=== PATIENT | female | born 1970 | race African-American/Black ===

== ENCOUNTER 2016-10-17 15:16 | Inpatient (IN) | payer SELFPAY ==
[~2016-10-17] VITALS: Ht 157.5 cm; Wt 45.8 kg
[2016-10-17] VITALS (7 sets, daily range): BP systolic 109–114; BP diastolic 68–82
[~2016-10-17 15:16] MED LIST: DOCU-138 PO; DOCUSATE; ECHI167T PO; FERR325T6 PO; IBUP100T54 PO; INSU3INS6 SUBCUT; INSULIN; METF500T4 PO; METFORMIN; NOVOLOG INSULIN SUBCUT/PO
[2016-10-17] MEDS ORDERED: SODIUM CHLORIDE 0.9% 1,000 ML IV ONE (16:06)
[2016-10-17 16:45] LABS: BASOPHILS % 0.4 % (0.0-2.0); DIFFERENTIAL COMMENT 0; HEMATOCRIT. 46.1 % (36.0-48.0); HEMOGLOBIN. 14.5 g/dL (12.0-16.0); LYMPHOCYTES % 12.3 % (20.0-50.0); MEAN CORPUSCULAR HEMOGLOBIN 34.5 pg (28.0-32.0); MEAN CORPUSCULAR HGB CONC 31.5 g/dL (31.0-37.0); MEAN CORPUSCULAR VOLUME 109.6 fL (81.0-99.0); MEAN PLATELET VOLUME 8.7 fl (7.4-10.4); MONOCYTES % 6.8 % (2.0-8.0); NEUTROPHILS % 80.5 % (40.0-76.0); PLATELET 367 x1000/uL (130-400); RED BLOOD CELL COUNT 4.21 mill/uL (4.2-5.4); RED CELL DISTRIBUTION WIDTH 14.8 % (11.6-14.6); WHITE BLOOD COUNT 13.5 x1000/uL (4.5-11.0)
[2016-10-17] MEDS ORDERED: ONDANSETRON HCL 4MG/2ML VIAL IV ONE (16:45)
[2016-10-17 16:47] LABS: CHLORIDE 94 mEq/L (98-107)
[2016-10-17 16:49] LABS: PROTHROMBIN TIME 10.4 sec
[2016-10-17 16:50] LABS: CLARITY URINE CLEAR (CLEAR); COLOR URINE YELLOW (YELLOW); GLUCOSE URINE 3+ (NEGATIVE); KETONES URINE 4+ (NEGATIVE); LEUKOCYTE ESTERASE URINE NEGATIVE (NEGATIVE); NITRITE URINE NEGATIVE (NEGATIVE); OCCULT BLOOD URINE TRACE (NEGATIVE); PROTEIN URINE 2+ (NEGATIVE); SPECIFIC GRAVITY URINE 1.023 (1.005-1.030); UROBILINOGEN URINE 0.2 E.U./dL (0.2-1.0)
[2016-10-17 16:53] LABS: CALCIUM 9.3 mg/dL (8.5-10.1); INDEX HEMOLYSI 2 (1-3); INDEX ICTERIC 1 (1-4); INDEX LIPEMIC 1 (1-3); UREA NITROGEN BLOOD 16 mg/dL (7-21)
[2016-10-17 16:56] LABS: ALANINE AMINOTRANSFERASE 51 IU/L (13-61); ANION GAP 37; eGFR > 60 mL/min (>60)
[2016-10-17 16:58] LABS: CARBON DIOXIDE 5 mEq/L (21-32)
[2016-10-17 17:12] LABS: WBC URINE 0-2 /hpf (0-2)
[2016-10-17 17:14] LABS: RBC URINE 0-2 /hpf (0-2)
[2016-10-17 17:15] LABS: BACTERIA URINE 1+; SQUAMOUS EPITHELIAL CELL URINE 2+ /lpf (RARE/1+)
[2016-10-17] MEDS ORDERED: INSULIN REGULAR (DRIP) 100 UNITS in SODIUM CHLORIDE 0.9% 100 ML IV ONE (17:30)
[2016-10-17 17:32] LABS: BETA HYDROXYBUTYRATE 14.2 mMol/L (0.0-0.3)
[2016-10-17] MEDS ORDERED: INSULIN REGULAR (DRIP) 100 UNITS in SODIUM CHLORIDE 0.9% 100 ML IV NR (18:00)
[2016-10-17] MEDS ORDERED: CLONIDINE 0.1MG TABLET PO PRN (20:45)
[2016-10-17] MEDS ORDERED: SODIUM CHLORIDE 0.45% 250 ML IV NR (20:45)
[2016-10-17] MEDS ORDERED: ZOLPIDEM TARTRATE 5MG TABLET PO PRN (20:45)
[2016-10-17] MEDS ORDERED: INSULIN REGULAR (DRIP) 100 UNITS in SODIUM CHLORIDE 0.9% 99 ML IV PRN (21:15)
[2016-10-17] MEDS ORDERED: DEXTROSE 50% WATER 50ML SYRINGE IV PRN ×4 (21:15→22:00)
[2016-10-17] MEDS: DEXT 5%/0.45% NACL 500 ML IV NR (21:55)
[2016-10-17] MEDS: BLOOD SUGAR DIAGNOSTIC STRIP TEST SCH ×3 (21:57→23:15)
[2016-10-17] MEDS ORDERED: BLOOD SUGAR DIAGNOSTIC STRIP TEST SCH (22:00)
[2016-10-17] MEDS ORDERED: INSULIN REGULAR (DRIP) 100 UNITS in SODIUM CHLORIDE 0.9% 100 ML IV SCH (23:00)
[2016-10-18] VITALS (33 sets, daily range): BP systolic 114–155; BP diastolic 67–113
[2016-10-18] MEDS: DEXT 5%/0.45% NACL 500 ML IV NR (00:45)
[2016-10-18] MEDS: BLOOD SUGAR DIAGNOSTIC STRIP TEST SCH ×11 (01:15→22:14)
[2016-10-18] MEDS: ACETAMINOPHEN 325MG TABLET PO PRN (03:40)
[2016-10-18 05:37] LABS: HEMATOCRIT. 37.9 % (36.0-48.0); HEMOGLOBIN. 12.6 g/dL (12.0-16.0); MEAN CORPUSCULAR HEMOGLOBIN 33.8 pg (28.0-32.0); MEAN CORPUSCULAR HGB CONC 33.2 g/dL (31.0-37.0); MEAN CORPUSCULAR VOLUME 101.8 fL (81.0-99.0); MEAN PLATELET VOLUME 8.3 fl (7.4-10.4); PLATELET 249 x1000/uL (130-400); RED BLOOD CELL COUNT 3.73 mill/uL (4.2-5.4); RED CELL DISTRIBUTION WIDTH 13.5 % (11.6-14.6); WHITE BLOOD COUNT 11.7 x1000/uL (4.5-11.0)
[2016-10-18 05:39] LABS: DIFFERENTIAL COMMENT 1
[2016-10-18 06:09] LABS: ALANINE AMINOTRANSFERASE 31 IU/L (13-61); ALBUMIN 3.9 g/dL (3.4-5.0); ANION GAP 20; CALCIUM 8.3 mg/dL (8.5-10.1); CARBON DIOXIDE 13 mEq/L (21-32); CHLORIDE 111 mEq/L (98-107); INDEX HEMOLYSI 1 (1-3); INDEX ICTERIC 1 (1-4); INDEX LIPEMIC 1 (1-3); UREA NITROGEN BLOOD 22 mg/dL (7-21); eGFR > 60 mL/min (>60)
[2016-10-18] MEDS ORDERED: DEXTROSE 50% WATER 50ML SYRINGE IV PRN (08:30)
[2016-10-18] MEDS: PANTOPRAZOLE 40MG DR TABLET PO SCH ×2 (08:43→17:31)
[2016-10-18] MEDS: SODIUM CHLORIDE 0.45% 1,000 ML IV SCH ×2 (08:44→17:31)
[2016-10-18] MEDS: ENOXAPARIN 40MG/0.4ML SYR SUBCUT SCH (08:44)
[2016-10-18 08:57] LABS: PLATELET ESTIMATE NORMAL
[2016-10-18] MEDS ORDERED: INSULIN DETEMIR UD 100 UNITS/ML SYR SUBCUT SCH (10:00)
[2016-10-18 13:25] LABS: CLARITY URINE CLOUDY (CLEAR); COLOR URINE YELLOW (YELLOW); GLUCOSE URINE 2+ (NEGATIVE); KETONES URINE 3+ (NEGATIVE); LEUKOCYTE ESTERASE URINE NEGATIVE (NEGATIVE); NITRITE URINE NEGATIVE (NEGATIVE); OCCULT BLOOD URINE NEGATIVE (NEGATIVE); PROTEIN URINE 2+ (NEGATIVE); SPECIFIC GRAVITY URINE 1.018 (1.005-1.030)
[2016-10-18] MEDS: INSULIN LISPRO 100 UNITS/ML SUBCUT SCH ×3 (13:39→22:14)
[2016-10-18 13:57] LABS: FINE GRANULAR CASTS URINE 0-5 /lpf; SQUAMOUS EPITHELIAL CELL URINE 3+ /lpf (RARE/1+)
[2016-10-18 13:58] LABS: BACTERIA URINE 4+; RBC URINE 0-2 /hpf (0-2); WBC URINE 15-25 /hpf (0-2)
[2016-10-18 14:00] LABS: TRIPLE PHOSPHATE CRYSTAL URINE 1+ /lpf; YEAST URINE 1+
[2016-10-18] MEDS ORDERED: ONDANSETRON HCL 4MG/2ML VIAL IV PRN (19:00)
[2016-10-18] MEDS: ONDANSETRON INJ 8 MG in DEXTROSE 5% WATER 50 ML IV PRN (19:54)
[2016-10-18] MEDS ORDERED: BLOOD SUGAR DIAGNOSTIC STRIP TEST SCH (21:00)
[2016-10-19] VITALS (27 sets, daily range): BP systolic 97–190; BP diastolic 38–95
[2016-10-19] MEDS: SODIUM CHLORIDE 0.45% 1,000 ML IV SCH (05:00)
[2016-10-19 05:23] LABS: BASOPHILS % 0.7 % (0.0-2.0); HEMOGLOBIN. 11.4 g/dL (12.0-16.0); LYMPHOCYTES % 8.4 % (20.0-50.0); MEAN CORPUSCULAR HEMOGLOBIN 34.1 pg (28.0-32.0); MEAN CORPUSCULAR HGB CONC 34.4 g/dL (31.0-37.0); MEAN CORPUSCULAR VOLUME 99.1 fL (81.0-99.0); MEAN PLATELET VOLUME 7.8 fl (7.4-10.4); MONOCYTES % 10.8 % (2.0-8.0); NEUTROPHILS % 80.1 % (40.0-76.0); PLATELET 228 x1000/uL (130-400); RED BLOOD CELL COUNT 3.33 mill/uL (4.2-5.4); RED CELL DISTRIBUTION WIDTH 13.6 % (11.6-14.6); WHITE BLOOD COUNT 8.3 x1000/uL (4.5-11.0)
[2016-10-19 05:37] LABS: ANION GAP 15; CALCIUM 8.3 mg/dL (8.5-10.1); CARBON DIOXIDE 19 mEq/L (21-32); CHLORIDE 107 mEq/L (98-107); INDEX HEMOLYSI 1 (1-3); INDEX ICTERIC 1 (1-4); INDEX LIPEMIC 1 (1-3); UREA NITROGEN BLOOD 19 mg/dL (7-21); eGFR > 60 mL/min (>60)
[2016-10-19] MEDS: BLOOD SUGAR DIAGNOSTIC STRIP TEST SCH ×4 (07:50→21:00)
[2016-10-19] MEDS: INSULIN LISPRO 100 UNITS/ML SUBCUT SCH ×4 (08:20→23:50)
[2016-10-19] MEDS: PANTOPRAZOLE 40MG DR TABLET PO SCH ×2 (08:42→19:03)
[2016-10-19] MEDS: ONDANSETRON INJ 8 MG in DEXTROSE 5% WATER 50 ML IV PRN (08:58)
[2016-10-19] MEDS: ENOXAPARIN 40MG/0.4ML SYR SUBCUT SCH (08:58)
[2016-10-19] MEDS: HYDROMORPHONE HCL/PF 2MG/ML CPJ IM PRN ×2 (09:01→20:21)
[2016-10-19] MEDS ORDERED: POTASSIUM ACETATE IV SCH (09:14)
[2016-10-19] MEDS ORDERED: SODIUM CHLORIDE 0.45% IV SCH (09:14)
[2016-10-19] MEDS ORDERED: POTASSIUM CHLORIDE 20MEQ TABLET SR PO NR (10:00)
[2016-10-19] MEDS ORDERED: INSULIN DETEMIR UD 100 UNITS/ML SYR SUBCUT SCH ×2 (10:00→22:00)
[2016-10-19] MEDS: POTASSIUM CHLORIDE INJ 10 MEQ in SODIUM CHLORIDE 0.45% 1,000 ML IV SCH ×2 (13:09→19:04)
[2016-10-19 13:34] LABS: MAGNESIUM 1.8 mg/dL (1.8-2.4); PHOSPHORUS 2.1 mg/dL (2.5-4.9)
[2016-10-20] VITALS: BP 101/59
[2016-10-20] MEDS: POTASSIUM CHLORIDE INJ 10 MEQ in SODIUM CHLORIDE 0.45% 1,000 ML IV SCH ×2 (03:03→13:41)
[2016-10-20 04:00] VITALS: BP 97/60
[2016-10-20 05:59] LABS: ANION GAP 13; CALCIUM 8.5 mg/dL (8.5-10.1); CARBON DIOXIDE 21 mEq/L (21-32); CHLORIDE 107 mEq/L (98-107); INDEX HEMOLYSI 1 (1-3); INDEX ICTERIC 1 (1-4); INDEX LIPEMIC 1 (1-3); eGFR > 60 mL/min (>60)
[2016-10-20 06:01] LABS: UREA NITROGEN BLOOD 10 mg/dL (7-21)
[2016-10-20 06:08] LABS: BASOPHILS % 0.3 % (0.0-2.0); DIFFERENTIAL COMMENT 0; EOSINOPHILS % 0.2 % (0.0-5.0); HEMATOCRIT. 31.7 % (36.0-48.0); HEMOGLOBIN. 10.7 g/dL (12.0-16.0); LYMPHOCYTES % 21.3 % (20.0-50.0); MEAN CORPUSCULAR HEMOGLOBIN 33.8 pg (28.0-32.0); MEAN CORPUSCULAR HGB CONC 33.7 g/dL (31.0-37.0); MEAN CORPUSCULAR VOLUME 100.3 fL (81.0-99.0); MEAN PLATELET VOLUME 8.1 fl (7.4-10.4); MONOCYTES % 11.6 % (2.0-8.0); NEUTROPHILS % 66.6 % (40.0-76.0); PLATELET 218 x1000/uL (130-400); RED BLOOD CELL COUNT 3.16 mill/uL (4.2-5.4); RED CELL DISTRIBUTION WIDTH 13.5 % (11.6-14.6); WHITE BLOOD COUNT 4.1 x1000/uL (4.5-11.0)
[2016-10-20] MEDS: BLOOD SUGAR DIAGNOSTIC STRIP TEST SCH ×3 (06:48→17:21)
[2016-10-20] MEDS: INSULIN LISPRO 100 UNITS/ML SUBCUT SCH ×2 (06:49→12:15)
[2016-10-20] MEDS: PANTOPRAZOLE 40MG DR TABLET PO SCH (06:53)
[2016-10-20 08:00] VITALS: BP 121/82
[2016-10-20] MEDS: ACETAMINOPHEN 325MG TABLET PO PRN (09:56)
[2016-10-20] MEDS: ENOXAPARIN 40MG/0.4ML SYR SUBCUT SCH (09:56)
[2016-10-20 12:00] VITALS: BP 122/78
[2016-10-20 15:35] VITALS: BP 117/76
== END 2016-10-20 18:25 | disposition home or self-care (01) | DRG 420 ==
LOC: ER 15:17 → CVICU 18:27 → 5WST 10-19 18:35
PROVIDERS: ADMIT Internal Medicine; ATTEND Internal Medicine
DX: E10.10 Type 1 diabetes mellitus with ketoacidosis without coma (principal); E87.5 Hyperkalemia; E87.1 Hypo-osmolality and hyponatremia; E78.00 Pure hypercholesterolemia, unspecified; D72.829 Elevated white blood cell count, unspecified; E86.0 Dehydration; E87.6 Hypokalemia; Z83.3 Family history of diabetes mellitus; Z91.19 Patient's noncompliance with other medical treatment and regimen; Z82.49 Family history of ischemic heart disease and other diseases of the circulatory system; Z79.4 Long term (current) use of insulin
CPT/HCPCS: 36415; 71010; 80048; 80053; 81001; 82010; 82962; 83690; 83735; 84100; 84132; 85025; 85610; 87086; 93005; 96374; 99291; J1170; J1650; J1815; J2405; J3480; J7030; J7050; J7060

== ENCOUNTER 2017-01-12 19:40 | Emergency (ER) | payer OTHER ==
[~2017-01-12] VITALS: Ht 154.9 cm; Wt 41.0 kg
[~2017-01-12 19:40] MED LIST changes: -DOCUSATE; -INSULIN; -METFORMIN; -NOVOLOG INSULIN SUBCUT/PO
[2017-01-12 20:41] LABS: BASOPHILS % 1.2 % (0.0-2.0); EOSINOPHILS % 0.6 % (0.0-5.0); HEMATOCRIT. 30.3 % (36.0-48.0); HEMOGLOBIN. 10.1 g/dL (12.0-16.0); LYMPHOCYTES % 37.6 % (20.0-50.0); MEAN CORPUSCULAR HEMOGLOBIN 28.2 pg (28.0-32.0); MEAN CORPUSCULAR VOLUME 84.6 fL (81.0-99.0); MEAN PLATELET VOLUME 7.6 fl (7.4-10.4); MONOCYTES % 9.7 % (2.0-8.0); NEUTROPHILS % 50.9 % (40.0-76.0); PLATELET 246 x1000/uL (130-400); RED BLOOD CELL COUNT 3.59 mill/uL (4.2-5.4); RED CELL DISTRIBUTION WIDTH 18.1 % (11.6-14.6)
[2017-01-12 20:47] LABS: INR 1.1; PARTIAL THROMBOPLASTIN TIME 21.9 sec (24.0-34.0); PROTHROMBIN TIME 11.7 sec
[2017-01-12 20:55] LABS: CARBON DIOXIDE 30 mEq/L (21-32); CHLORIDE 102 mEq/L (98-107); TROPONIN I < 0.02 ng/mL (0.00-0.04)
[2017-01-12] MEDS ORDERED: POTASSIUM CHLORIDE 20MEQ TABLET SR PO ONE (21:30)
[2017-01-12] MEDS ORDERED: KCL 20MEQ/100ML PREMIX 100 ML IV ONE (21:30)
[2017-01-12] MEDS ORDERED: ONDANSETRON HCL 4MG/2ML VIAL IV ONE (21:30)
[2017-01-12] MEDS ORDERED: MORPHINE SULFATE 4 MG/ML CPJ (NOT FOR IM USE) IV ONE (21:30)
[2017-01-12] MEDS ORDERED: POTASSIUM CHLORIDE 20MEQ/PACKET PO ONE (22:15)
[2017-01-13 00:07] VITALS: BP 138/80
== END 2017-01-13 00:09 | disposition home or self-care (01) ==
LOC: ER 19:40
DX: K56.0 Paralytic ileus (principal); E87.6 Hypokalemia; E11.9 Type 2 diabetes mellitus without complications; Z79.4 Long term (current) use of insulin; Z98.890 Other specified postprocedural states
CPT/HCPCS: 36415; 71010; 76705; 80053; 83690; 84484; 85025; 85610; 85730; 93005; 96365; 96375; 99285; J2270; J2405; J3480; J7030; Z7610

== ENCOUNTER 2017-02-26 15:15 | Inpatient (IN) | payer OTHER ==
[2017-02-26] VITALS (8 sets, daily range): BP systolic 120–150; BP diastolic 72–85
[~2017-02-26] VITALS: Ht 162.6 cm; Wt 39.5 kg
[~2017-02-26 15:15] MED LIST changes: +HUMALOG SQ
[2017-02-26 16:45] LABS: HEMATOCRIT. 33.1 % (36.0-48.0); HEMOGLOBIN. 10.3 g/dL (12.0-16.0); MEAN CORPUSCULAR HEMOGLOBIN 25.3 pg (28.0-32.0); MEAN CORPUSCULAR VOLUME 81.7 fL (81.0-99.0); MEAN PLATELET VOLUME 7.7 fl (7.4-10.4); PLATELET 437 x1000/uL (130-400); RED BLOOD CELL COUNT 4.05 mill/uL (4.2-5.4); RED CELL DISTRIBUTION WIDTH 18.2 % (11.6-14.6)
[2017-02-26 16:47] LABS: CHLORIDE 100 mEq/L (98-107)
[2017-02-26 16:51] LABS: PROTHROMBIN TIME 10.7 sec (9.4-11.6)
[2017-02-26 16:55] LABS: CARBON DIOXIDE 12 mEq/L (21-32)
[2017-02-26 17:40] LABS: CLARITY URINE CLEAR (CLEAR); COLOR URINE YELLOW (YELLOW); GLUCOSE URINE 3+ (NEGATIVE); KETONES URINE 4+ (NEGATIVE); LEUKOCYTE ESTERASE URINE NEGATIVE (NEGATIVE); NITRITE URINE NEGATIVE (NEGATIVE); OCCULT BLOOD URINE NEGATIVE (NEGATIVE); PROTEIN URINE 2+ (NEGATIVE); SPECIFIC GRAVITY URINE 1.027 (1.005-1.030); UROBILINOGEN URINE 0.2 E.U./dL (0.2-1.0)
[2017-02-26 17:44] LABS: PLATELET ESTIMATE SLIGHTLY INCREASED
[2017-02-26 17:51] LABS: *AMPHETAMINES SCREEN URINE NEGATIVE (NEGATIVE); *BARBITURATES SCREEN URINE NEGATIVE (NEGATIVE); *BENZODIAZEPINES SCREEN URINE NEGATIVE (NEGATIVE); *COCAINE SCREEN URINE NEGATIVE (NEGATIVE); CANNABINOID URINE SCREEN NEGATIVE (NEGATIVE); METHADONE URINE SCREEN NEGATIVE (NEGATIVE); OPIATES URINE SCREEN NEGATIVE (NEGATIVE); PHENCYCLIDINE URINE SCREEN NEGATIVE (NEGATIVE)
[2017-02-26] MEDS ORDERED: INSULIN REGULAR (DRIP) 100 UNITS in SODIUM CHLORIDE 0.9% 100 ML IV ONE ×2 (20:15→20:42)
[2017-02-26] MEDS ORDERED: SODIUM CHLORIDE 0.9% 1,000 ML IV ONE (20:15)
[2017-02-26 20:41] LABS: BG BASE EXCESS -19.6 mmol/L (-2.0-2.0); BG CARBOXYHEMOGLOBIN 0.2 % (0.5-1.5); BG DEOXYHEMOGLOBIN 2.3 % (0.0-5.0); BG FRACTION INSPIRED OXYGEN 21; BG HCO3 ACT 5.2 mmol/L (22.0-26.0); BG METHEMOGLOBIN 1.2 % (0.0-1.5); BG OXYGEN SATURATION 97.7 % (92.0-98.5); BG OXYHEMOGLOBIN 96.3 % (94.0-97.0); BG PCO2 12.1 mmHg (35.0-45.0); BG PH 7.252 (7.350-7.450); BG SAMPLE SITE RIGHT BRACHIAL; BG TOTAL HEMOGLOBIN 10.3 g/dL (12.0-18.0); BG VENT MODE ROOM AIR
[2017-02-26] MEDS ORDERED: ONDANSETRON HCL 4MG/2ML VIAL IV ONE (21:45)
[2017-02-26] MEDS ORDERED: INSULIN REGULAR (DRIP) 100 UNITS in SODIUM CHLORIDE 0.9% 100 ML IV SCH (22:41)
[2017-02-26] MEDS ORDERED: BLOOD SUGAR DIAGNOSTIC STRIP TEST SCH (22:45)
[2017-02-26] MEDS ORDERED: NA PHOS,M-B/NA PHOS,DI-BA ENEMA 118ML PR PRN (22:45)
[2017-02-26] MEDS ORDERED: GUAIFENESIN 200MG/10ML SUGAR FREE UDC PO PRN (22:45)
[2017-02-26] MEDS ORDERED: IPRATROPIUM/ALBUTEROL 0.5-3(2.5)MG/3ML NEB INH PRN (22:45)
[2017-02-26] MEDS ORDERED: DIPHENHYDRAMINE 50MG/ML VIAL IV PRN (22:45)
[2017-02-26] MEDS ORDERED: MAGNESIUM/ALUMINUM HYDROXIDE/SIMETHICONE 30ML UDC PO PRN (22:45)
[2017-02-26] MEDS ORDERED: ZOLPIDEM TARTRATE 5MG TABLET PO PRN (22:45)
[2017-02-26] MEDS ORDERED: INSULIN REGULAR (DRIP) 100 UNITS in SODIUM CHLORIDE 0.9% 99 ML IV PRN (22:45)
[2017-02-26] MEDS ORDERED: ACETAMINOPHEN 325MG TABLET PO PRN (22:45)
[2017-02-26] MEDS ORDERED: NITROGLYCERIN 0.4MG TABLET SL SL PRN (22:45)
[2017-02-26] MEDS ORDERED: POTASSIUM ACETATE 20 MEQ in SODIUM CHLORIDE 0.9% 1,000 ML IV SCH (22:45)
[2017-02-26] MEDS ORDERED: LORAZEPAM 2MG/ML CPJ IV PRN (22:45)
[2017-02-26] MEDS ORDERED: ONDANSETRON HCL 4MG/2ML VIAL IV PRN (22:45)
[2017-02-26] MEDS ORDERED: DOCUSATE SODIUM 100MG CAPSULE PO PRN (22:45)
[2017-02-26] MEDS ORDERED: SODIUM CHLORIDE 0.9% 1,000 ML IV SCH (23:04)
[2017-02-26] MEDS: ENOXAPARIN 40MG/0.4ML SYR SUBCUT SCH (23:39)
[2017-02-27] VITALS (34 sets, daily range): BP systolic 95–168; BP diastolic 60–89
[2017-02-27] MEDS: BLOOD SUGAR DIAGNOSTIC STRIP TEST SCH ×20 (00:46→22:18)
[2017-02-27] MEDS: DEXT 5%/0.9% NACL 1,000 ML IV SCH ×3 (01:40→13:51)
[2017-02-27 06:40] LABS: BASOPHILS % 0.4 % (0.0-2.0); HEMATOCRIT. 26.6 % (36.0-48.0); HEMOGLOBIN. 8.3 g/dL (12.0-16.0); LYMPHOCYTES % 14.1 % (20.0-50.0); MEAN CORPUSCULAR HEMOGLOBIN 25.2 pg (28.0-32.0); MEAN PLATELET VOLUME 7.7 fl (7.4-10.4); MONOCYTES % 13.5 % (2.0-8.0); PLATELET 338 x1000/uL (130-400); RED BLOOD CELL COUNT 3.28 mill/uL (4.2-5.4)
[2017-02-27 06:48] LABS: CARBON DIOXIDE 16 mEq/L (21-32); CHLORIDE 117 mEq/L (98-107)
[2017-02-27 07:09] LABS: PHOSPHORUS 1.4 mg/dL (2.5-4.9)
[2017-02-27] MEDS: FAMOTIDINE 20MG/2ML VIAL IV SCH ×2 (08:07→21:17)
[2017-02-27] MEDS ORDERED: POTASSIUM PHOS,M-BASIC-D-BASIC 20 MMOL in DEXT 5% WATER 243.3333 ML IV SCH (10:00)
[2017-02-27 15:50] LABS: CHLORIDE 118 mEq/L (98-107)
[2017-02-27 15:51] LABS: PHOSPHORUS 1.4 mg/dL (2.5-4.9)
[2017-02-27 15:56] LABS: CARBON DIOXIDE 20 mEq/L (21-32)
[2017-02-27] MEDS ORDERED: DEXTROSE 50% WATER 50ML SYRINGE IV PRN (16:30)
[2017-02-27] MEDS ORDERED: INSULIN DETEMIR UD 100 UNITS/ML SYR SUBCUT NR (17:00)
[2017-02-27] MEDS ORDERED: POTASSIUM PHOS,M-BASIC-D-BASIC 30 MMOL in DEXT 5% WATER 500 ML IV NR (18:00)
[2017-02-27] MEDS: INSULIN LISPRO 100 UNITS/ML SUBCUT SCH ×3 (18:28→22:18)
[2017-02-27] MEDS: CLONIDINE 0.1MG TABLET PO PRN (18:50)
[2017-02-27] MEDS ORDERED: INSULIN DETEMIR UD 100 UNITS/ML SYR SUBCUT SCH (22:00)
[2017-02-27] MEDS: DEXTROSE 50% WATER 50ML SYRINGE IV PRN (22:20)
[2017-02-27] MEDS: ENOXAPARIN 40MG/0.4ML SYR SUBCUT SCH (22:23)
[2017-02-28] VITALS (24 sets, daily range): BP systolic 100–169; BP diastolic 62–110
[2017-02-28] MEDS: DEXTROSE 50% WATER 50ML SYRINGE IV PRN ×5 (00:02→09:07)
[2017-02-28] MEDS: DEXT 10% WATER 1,000 ML IV SCH ×2 (03:50→15:32)
[2017-02-28 06:08] LABS: HEMATOCRIT 24.7 % (36.0-48.0); HEMOGLOBIN 7.9 g/dL (12.0-16.0); MEAN CORPUSCULAR HEMOGLOBIN 25.6 pg (28.0-32.0); MEAN CORPUSCULAR VOLUME 79.8 fL (81.0-99.0); PLATELET 238 x1000/uL (130-400); RED CELL DISTRIBUTION WIDTH 18.7 % (11.6-14.6)
[2017-02-28 06:55] LABS: CARBON DIOXIDE 22 mEq/L (21-32); CHLORIDE 109 mEq/L (98-107); PHOSPHORUS 3.1 mg/dL (2.5-4.9)
[2017-02-28] MEDS: INSULIN LISPRO 100 UNITS/ML SUBCUT SCH ×7 (07:50→21:41)
[2017-02-28] MEDS: ONDANSETRON HCL 4MG/2ML VIAL IV PRN ×3 (08:50→18:47)
[2017-02-28] MEDS: FAMOTIDINE 20MG/2ML VIAL IV SCH ×2 (08:50→19:57)
[2017-02-28] MEDS: BLOOD SUGAR DIAGNOSTIC STRIP TEST SCH ×4 (09:03→21:00)
[2017-02-28] MEDS ORDERED: POTASSIUM CHLORIDE 20MEQ/PACKET PO NR (09:30)
[2017-02-28] MEDS: KETOROLAC 30MG/ML VIAL IV PRN ×3 (09:53→21:31)
[2017-02-28] MEDS ORDERED: KCL 20MEQ/100ML PREMIX 100 ML IV NR (10:30)
[2017-02-28] MEDS ORDERED: MAGNESIUM 2 G PREMIX 50 ML IV NR (11:00)
[2017-02-28] MEDS: ERYTHROMYCIN LACTOBIONATE 500 MG in SODIUM CHLORIDE 0.9% 100 ML IV SCH ×2 (13:43→19:57)
[2017-02-28] MEDS ORDERED: INSULIN DETEMIR UD 100 UNITS/ML SYR SUBCUT SCH (22:00)
[2017-02-28] MEDS: ENOXAPARIN 40MG/0.4ML SYR SUBCUT SCH (22:42)
[2017-03-01] VITALS (17 sets, daily range): BP systolic 91–156; BP diastolic 58–104
[2017-03-01] MEDS: KETOROLAC 30MG/ML VIAL IV PRN (06:18)
[2017-03-01] MEDS: DEXT 10% WATER 1,000 ML IV SCH (06:18)
[2017-03-01] MEDS: BLOOD SUGAR DIAGNOSTIC STRIP TEST SCH ×2 (07:57→12:54)
[2017-03-01] MEDS: INSULIN LISPRO 100 UNITS/ML SUBCUT SCH ×4 (08:04→12:54)
[2017-03-01] MEDS: FAMOTIDINE 20MG/2ML VIAL IV SCH (08:14)
[2017-03-01] MEDS: CLONIDINE 0.1MG TABLET PO PRN (11:16)
[2017-03-01 11:23] LABS: CARBON DIOXIDE 23 mEq/L (21-32); CHLORIDE 101 mEq/L (98-107)
[2017-03-01] MEDS ORDERED: POTASSIUM CHLORIDE 20MEQ/PACKET PO NR (11:45)
[2017-03-01] MEDS ORDERED: KCL 20MEQ/100ML PREMIX 100 ML IV NR (13:30)
[2017-03-01] MEDS ORDERED: INSU100I28 SQ (14:09)
[2017-03-01] MEDS ORDERED: PROT40 PO (14:12)
[2017-03-01] MEDS ORDERED: SUCR1TAB30 PO (14:13)
[2017-03-01] MEDS ORDERED: DEXT 10% WATER 1,000 ML IV SCH (14:30)
== END 2017-03-01 15:30 | disposition home or self-care (01) | DRG 420 ==
LOC: ER 15:45 → CVICU 21:01 → EDBEDREQSVC 21:13 → EDBEDREQ 21:13 → EDBEDREQTM 21:13 → ENRESERV 21:27
PROVIDERS: ADMIT Internal Medicine; ATTEND Internal Medicine
DX: E13.10 Other specified diabetes mellitus with ketoacidosis without coma (principal); N17.0 Acute kidney failure with tubular necrosis; E87.0 Hyperosmolality and hypernatremia; E83.42 Hypomagnesemia; E83.39 Other disorders of phosphorus metabolism; E13.649 Other specified diabetes mellitus with hypoglycemia without coma; E86.0 Dehydration; E87.6 Hypokalemia; I10 Essential (primary) hypertension; Z79.4 Long term (current) use of insulin; Z91.11 Patient's noncompliance with dietary regimen; Z91.14 Patient's other noncompliance with medication regimen; Z79.899 Other long term (current) drug therapy
CPT/HCPCS: 36415; 36600; 71010; 74176; 80048; 80053; 80305; 81001; 81025; 82375; 82805; 82962; 83036; 83690; 83735; 83880; 84100; 85025; 85027; 85610; 85651; 93005; 93970; 99285; C1893; J1364; J1650; J1815; J1885; J2405; J3475; J3480; J3490; J7030; J7042; J7050; J7060

== ENCOUNTER 2017-03-15 07:52 | Emergency (ER) | payer OTHER ==
[~2017-03-15] VITALS: Ht 162.6 cm; Wt 55.0 kg
[~2017-03-15 07:52] MED LIST changes: -DOCU-138 PO; -ECHI167T PO; -FERR325T6 PO; -IBUP100T54 PO; -METF500T4 PO; +PROT40 PO; +SUCR1TAB30 PO
[2017-03-15 08:57] LABS: CARBON DIOXIDE 26 mEq/L (21-32); CHLORIDE 105 mEq/L (98-107)
[2017-03-15 09:02] LABS: HEMATOCRIT. 27.1 % (36.0-48.0); HEMOGLOBIN. 8.5 g/dL (12.0-16.0); MEAN CORPUSCULAR HEMOGLOBIN 24.8 pg (28.0-32.0); MEAN CORPUSCULAR VOLUME 79.3 fL (81.0-99.0); MEAN PLATELET VOLUME 6.9 fl (7.4-10.4); PLATELET 421 x1000/uL (130-400); RED BLOOD CELL COUNT 3.42 mill/uL (4.2-5.4); RED CELL DISTRIBUTION WIDTH 19.2 % (11.6-14.6)
[2017-03-15 09:56] LABS: PLATELET ESTIMATE INCREASED
[2017-03-15 12:24] VITALS: BP 107/68
== END 2017-03-15 12:25 | disposition home or self-care (01) ==
LOC: ER 08:02
DX: E11.65 Type 2 diabetes mellitus with hyperglycemia (principal); Z79.4 Long term (current) use of insulin
CPT/HCPCS: 36415; 80048; 82962; 85025; 99284; Z7610

== ENCOUNTER 2017-03-17 11:03 | Emergency (ER) | payer OTHER ==
[~2017-03-17] VITALS: Ht 154.9 cm; Wt 48.0 kg
[2017-03-17 12:15] LABS: HEMATOCRIT. 33.5 % (36.0-48.0); HEMOGLOBIN. 10.6 g/dL (12.0-16.0); MEAN CORPUSCULAR HEMOGLOBIN 24.8 pg (28.0-32.0); MEAN CORPUSCULAR VOLUME 78.6 fL (81.0-99.0); PLATELET 521 x1000/uL (130-400); RED BLOOD CELL COUNT 4.26 mill/uL (4.2-5.4); RED CELL DISTRIBUTION WIDTH 19.4 % (11.6-14.6)
[2017-03-17 12:18] LABS: CHLORIDE 99 mEq/L (98-107)
[2017-03-17 12:20] LABS: HCG SCREEN NEGATIVE
[2017-03-17 12:24] LABS: CARBON DIOXIDE 30 mEq/L (21-32)
[2017-03-17 13:21] LABS: CLARITY URINE CLEAR (CLEAR); COLOR URINE YELLOW (YELLOW); GLUCOSE URINE TRACE (NEGATIVE); KETONES URINE NEGATIVE (NEGATIVE); LEUKOCYTE ESTERASE URINE NEGATIVE (NEGATIVE); NITRITE URINE NEGATIVE (NEGATIVE); OCCULT BLOOD URINE NEGATIVE (NEGATIVE); PH URINE 7.5 (4.5-8.0); PROTEIN URINE NEGATIVE (NEGATIVE); SPECIFIC GRAVITY URINE 1.011 (1.005-1.030); UROBILINOGEN URINE 0.2 E.U./dL (0.2-1.0)
[2017-03-17 13:22] LABS: PLATELET ESTIMATE INCREASED
[2017-03-17] MEDS ORDERED: DEXTROSE 50% WATER 50ML SYRINGE IV ONE (13:30)
[2017-03-17 15:30] VITALS: BP 130/78
== END 2017-03-17 15:41 | disposition home or self-care (01) ==
LOC: ER 11:12
DX: E11.649 Type 2 diabetes mellitus with hypoglycemia without coma (principal); D64.9 Anemia, unspecified; D72.819 Decreased white blood cell count, unspecified; Z79.4 Long term (current) use of insulin; R03.0 Elevated blood-pressure reading, without diagnosis of hypertension
CPT/HCPCS: 36415; 80048; 81001; 82962; 84703; 85025; 93005; 96374; 99285

== ENCOUNTER 2017-07-10 13:58 | Emergency (ER) | payer OTHER ==
[~2017-07-10] VITALS: Ht 154.9 cm; Wt 44.0 kg
[2017-07-10] MEDS ORDERED: SODIUM CHLORIDE 0.9% 1,000 ML IV ONE (15:30)
[2017-07-10 16:15] LABS: CHLORIDE 98 mEq/L (98-107)
[2017-07-10 16:18] LABS: PROTHROMBIN TIME 10.8 sec (9.4-11.6)
[2017-07-10 16:21] LABS: HEMATOCRIT. 28.1 % (36.0-48.0); HEMOGLOBIN. 8.8 g/dL (12.0-16.0); MEAN CORPUSCULAR HEMOGLOBIN 21.5 pg (28.0-32.0); MEAN CORPUSCULAR VOLUME 68.6 fL (81.0-99.0); MEAN PLATELET VOLUME 7.5 fl (7.4-10.4); PLATELET 522 x1000/uL (130-400); RED CELL DISTRIBUTION WIDTH 18.7 % (11.6-14.6)
[2017-07-10 16:24] LABS: CARBON DIOXIDE 25 mEq/L (21-32)
[2017-07-10] MEDS ORDERED: DEXTROSE 50% WATER 50ML SYRINGE IV ONE (16:30)
[2017-07-10 16:57] LABS: ATYPICAL LYMPHOCYTES 1; PLATELET ESTIMATE INCREASED
[2017-07-10 17:55] LABS: CLARITY URINE CLEAR (CLEAR); COLOR URINE YELLOW (YELLOW); KETONES URINE 3+ (NEGATIVE); LEUKOCYTE ESTERASE URINE NEGATIVE (NEGATIVE); NITRITE URINE NEGATIVE (NEGATIVE); OCCULT BLOOD URINE NEGATIVE (NEGATIVE); PH URINE 5.5 (4.5-8.0); PROTEIN URINE NEGATIVE (NEGATIVE); SPECIFIC GRAVITY URINE 1.034 (1.005-1.030); UROBILINOGEN URINE 0.2 E.U./dL (0.2-1.0)
[2017-07-10 20:17] VITALS: BP 106/53
== END 2017-07-10 22:02 | disposition home or self-care (01) ==
LOC: ER 14:11
DX: E11.649 Type 2 diabetes mellitus with hypoglycemia without coma (principal); D64.9 Anemia, unspecified; Z79.4 Long term (current) use of insulin; Z98.890 Other specified postprocedural states
CPT/HCPCS: 36415; 80053; 81001; 81025; 82947; 82962; 85025; 85610; 93005; 96361; 96374; 99285; J7030

== ENCOUNTER 2018-08-20 18:17 | Inpatient (IN) | payer OTHER ==
[~2018-08-20] VITALS: Ht 154.9 cm; Wt 43.7 kg
[2018-08-20] MEDS ORDERED: ONDANSETRON HCL 4MG/2ML INJ IV STA (22:04)
[2018-08-20] MEDS ORDERED: MORPHINE SULFATE 4 MG/ML CPJ (NOT FOR IM USE) IV STA (22:04)
[2018-08-20] MEDS ORDERED: SODIUM CHLORIDE 0.9% 1,000 ML IV ONE (22:04)
[2018-08-20 22:44] LABS: HEMATOCRIT. 34.4 % (36.0-48.0); HEMOGLOBIN. 11.6 g/dL (12.0-16.0); MEAN CORPUSCULAR HEMOGLOBIN 29.9 pg (28.0-32.0); MEAN PLATELET VOLUME 8.9 fl (7.4-10.4); PLATELET 460 x1000/uL (130-400); RED BLOOD CELL COUNT 3.86 mill/uL (4.2-5.4); RED CELL DISTRIBUTION WIDTH 19.7 % (11.6-14.6)
[2018-08-20 22:47] LABS: HCG SCREEN NEGATIVE
[2018-08-20 23:15] LABS: PLATELET ESTIMATE SLIGHTLY INCREASED
[2018-08-20 23:39] LABS: CHLORIDE 106 mEq/L (98-107)
[2018-08-21] VITALS (28 sets, daily range): BP systolic 106–172; BP diastolic 60–106
[2018-08-21] MEDS ORDERED: SODIUM CHLORIDE 0.9% 1,000 ML IV ONE ×2 (01:13→01:42)
[2018-08-21 01:33] LABS: BG BASE EXCESS -15.4 mmol/L (-2.0-2.0); BG CARBOXYHEMOGLOBIN 0.3 % (0.5-1.5); BG DEOXYHEMOGLOBIN 2.3 % (0.0-5.0); BG FRACTION INSPIRED OXYGEN 21; BG HCO3 ACT 9.5 mmol/L (22.0-26.0); BG METHEMOGLOBIN 0.3 % (0.0-1.5); BG OXYGEN SATURATION 97.7 % (92.0-98.5); BG OXYHEMOGLOBIN 97.1 % (94.0-97.0); BG PCO2 20.5 mmHg (35.0-45.0); BG PH 7.283 (7.350-7.450); BG PO2 115.4 mmHg (75.0-100.0); BG SAMPLE SITE RIGHT BRACHIAL; BG TOTAL HEMOGLOBIN 10.3 g/dL (12.0-18.0); BG VENT MODE ROOM AIR
[2018-08-21] MEDS ORDERED: IOHEXOL-300 100 ML BOTTLE ONE (02:05)
[2018-08-21 02:21] LABS: CHLORIDE 104 mEq/L (98-107)
[2018-08-21 02:26] LABS: PHOSPHORUS 2.5 mg/dL (2.5-4.9)
[2018-08-21] MEDS ORDERED: INSULIN REGULAR (DRIP) 100 UNITS in SODIUM CHLORIDE 0.9% 99 ML IV SCH (02:30)
[2018-08-21] MEDS ORDERED: ACETAMINOPHEN 325MG TABLET PO PRN (03:45)
[2018-08-21] MEDS ORDERED: INSULIN REGULAR (DRIP) 100 UNITS in SODIUM CHLORIDE 0.9% 100 ML IV ONE (03:45)
[2018-08-21] MEDS ORDERED: DIPHENHYDRAMINE 50MG/ML VIAL IV PRN (03:45)
[2018-08-21] MEDS ORDERED: SODIUM CHLORIDE 0.9% 1,000 ML IV STA (04:47)
[2018-08-21] MEDS ORDERED: DEXT 5%/0.45% NACL 1000ML 1,000 ML IV SCH (05:45)
[2018-08-21] MEDS ORDERED: MAGNESIUM 2 G PREMIX 50 ML IV SCH (06:00)
[2018-08-21] MEDS ORDERED: POTASSIUM PHOS,M-BASIC-D-BASIC 15 MMOL in DEXT 5% WATER 245 ML IV SCH (06:00)
[2018-08-21 06:37] LABS: CHLORIDE 115 mEq/L (98-107)
[2018-08-21] MEDS ORDERED: SODIUM CHLORIDE 0.9% 1,000 ML IV SCH (09:15)
[2018-08-21 09:21] LABS: CLARITY URINE CLEAR (CLEAR); COLOR URINE YELLOW (YELLOW); KETONES URINE 2+ (NEGATIVE); LEUKOCYTE ESTERASE URINE NEGATIVE (NEGATIVE); NITRITE URINE NEGATIVE (NEGATIVE); OCCULT BLOOD URINE NEGATIVE (NEGATIVE); PROTEIN URINE NEGATIVE (NEGATIVE); SPECIFIC GRAVITY URINE 1.041 (1.005-1.030); UROBILINOGEN URINE 0.2 E.U./dL (0.2-1.0)
[2018-08-21] MEDS: FAMOTIDINE 20MG/2ML VIAL IV SCH ×2 (10:32→21:25)
[2018-08-21] MEDS ORDERED: DEXTROSE 50% WATER 50ML SYRINGE IV PRN ×2 (12:45)
[2018-08-21] MEDS ORDERED: INSULIN REGULAR (DRIP) 100 UNITS in SODIUM CHLORIDE 0.9% 100 ML IV SCH (13:00)
[2018-08-21 13:04] LABS: CHLORIDE 113 mEq/L (98-107)
[2018-08-21 13:10] LABS: PHOSPHORUS 1.9 mg/dL (2.5-4.9)
[2018-08-21] MEDS: DEXT 5%/0.45% NACL KCL 20MEQ/L 1,000 ML IV SCH ×2 (13:30→20:44)
[2018-08-21] MEDS: BLOOD SUGAR DIAGNOSTIC STRIP TEST SCH ×11 (13:42→22:45)
[2018-08-21] MEDS ORDERED: POTASSIUM PHOS,M-BASIC-D-BASIC 30 MMOL in DEXT 5% WATER 500 ML IV NR (20:30)
[2018-08-21] MEDS: KETOROLAC 30MG/ML VIAL IV PRN (20:36)
[2018-08-21] MEDS: ONDANSETRON HCL 4MG/2ML INJ IV PRN (21:20)
[2018-08-22] VITALS (46 sets, daily range): BP systolic 116–209; BP diastolic 56–160
[2018-08-22] MEDS: BLOOD SUGAR DIAGNOSTIC STRIP TEST SCH ×17 (00:09→20:56)
[2018-08-22] MEDS: KETOROLAC 30MG/ML VIAL IV PRN ×3 (03:07→19:31)
[2018-08-22 05:51] LABS: HEMATOCRIT. 30.9 % (36.0-48.0); HEMOGLOBIN. 10.4 g/dL (12.0-16.0); MEAN CORPUSCULAR HEMOGLOBIN 30.3 pg (28.0-32.0); MEAN CORPUSCULAR VOLUME 89.9 fL (81.0-99.0); MEAN PLATELET VOLUME 8.4 fl (7.4-10.4); PLATELET 373 x1000/uL (130-400); RED BLOOD CELL COUNT 3.44 mill/uL (4.2-5.4); RED CELL DISTRIBUTION WIDTH 18.4 % (11.6-14.6)
[2018-08-22 06:05] LABS: CHLORIDE 108 mEq/L (98-107)
[2018-08-22 06:12] LABS: PHOSPHORUS 2.9 mg/dL (2.5-4.9)
[2018-08-22] MEDS: DEXT 5%/0.45% NACL KCL 20MEQ/L 1,000 ML IV SCH (06:36)
[2018-08-22] MEDS: FAMOTIDINE 20MG/2ML VIAL IV SCH ×2 (08:17→20:55)
[2018-08-22] MEDS: ONDANSETRON HCL 4MG/2ML INJ IV PRN (08:17)
[2018-08-22] MEDS ORDERED: MORPHINE SULFATE 4 MG/ML CPJ (NOT FOR IM USE) IV NR (10:15)
[2018-08-22] MEDS ORDERED: DEXTROSE 50% WATER 50ML SYRINGE IV PRN (10:15)
[2018-08-22] MEDS ORDERED: MAGNESIUM 2 G PREMIX 50 ML IV NR (10:30)
[2018-08-22] MEDS ORDERED: INSULIN GLARGINE UD 100 UNITS/ML SYR SUBCUT NR (11:00)
[2018-08-22] MEDS: INSULIN LISPRO 100 UNITS/ML SUBCUT SCH ×3 (13:01→21:00)
[2018-08-22] MEDS: SODIUM CHLORIDE 0.9% 1,000 ML IV SCH ×2 (13:31→21:05)
[2018-08-22 16:13] LABS: PLATELET ESTIMATE NORMAL
[2018-08-22] MEDS: MORPHINE SULFATE 4 MG/ML CPJ (NOT FOR IM USE) IV PRN ×4 (20:56→21:51)
[2018-08-22] MEDS ORDERED: CLONIDINE 0.1MG TABLET PO PRN (21:45)
[2018-08-23] VITALS (43 sets, daily range): BP systolic 90–172; BP diastolic 26–107
[2018-08-23 06:30] LABS: CHLORIDE 105 mEq/L (98-107)
[2018-08-23] MEDS: BLOOD SUGAR DIAGNOSTIC STRIP TEST SCH ×4 (08:05→21:13)
[2018-08-23] MEDS: INSULIN LISPRO 100 UNITS/ML SUBCUT SCH ×4 (08:06→21:17)
[2018-08-23] MEDS: FAMOTIDINE 20MG/2ML VIAL IV SCH ×2 (09:20→20:59)
[2018-08-23] MEDS: SODIUM CHLORIDE 0.9% 1,000 ML IV SCH ×2 (09:20→17:52)
[2018-08-24] VITALS (25 sets, daily range): BP systolic 97–158; BP diastolic 39–120
[2018-08-24] MEDS: SODIUM CHLORIDE 0.9% 1,000 ML IV SCH (02:15)
[2018-08-24] MEDS: BLOOD SUGAR DIAGNOSTIC STRIP TEST SCH ×2 (07:55→12:16)
[2018-08-24] MEDS: FAMOTIDINE 20MG/2ML VIAL IV SCH (08:08)
[2018-08-24] MEDS: INSULIN LISPRO 100 UNITS/ML SUBCUT SCH ×2 (08:09→12:16)
== END 2018-08-24 16:52 | disposition home or self-care (01) | DRG 420 ==
LOC: ER 18:17 → CVICU 08-21 03:28 → EDBEDREQ 08-21 03:34 → ENRESERV 08-21 07:57 → 6EST 08-24 11:17
PROVIDERS: ADMIT Internal Medicine; ATTEND Internal Medicine
DX: E11.10 Type 2 diabetes mellitus with ketoacidosis without coma (principal); N17.9 Acute kidney failure, unspecified; E44.1 Mild protein-calorie malnutrition; E83.39 Other disorders of phosphorus metabolism; R10.9 Unspecified abdominal pain; Z68.1 Body mass index [BMI] 19.9 or less, adult; Z83.3 Family history of diabetes mellitus; Z98.891 History of uterine scar from previous surgery
CPT/HCPCS: 36415; 36600; 71045; 74177; 80048; 82010; 82375; 82805; 82962; 83735; 83880; 84100; 84484; 84703; 93005; 96374; 96375; 99285; J1200; J1815; J1885; J2270; J2405; J3475; J3490; J7030; J7050; J7060; Q9967

== ENCOUNTER 2018-08-29 17:45 | Inpatient (IN) | payer OTHER ==
[~2018-08-29] VITALS: Ht 154.9 cm; Wt 43.1 kg
[~2018-08-29 17:45] MED LIST changes: -PROT40 PO; -SUCR1TAB30 PO
[2018-08-29] MEDS ORDERED: ONDANSETRON HCL 4MG/2ML INJ IV STA (18:45)
[2018-08-29] MEDS ORDERED: SODIUM CHLORIDE 0.9% 1000ML BAG (SEPSIS BOLUS) IV ONE (18:45)
[2018-08-29] MEDS ORDERED: MORPHINE SULFATE 4 MG/ML CPJ (NOT FOR IM USE) IV STA (18:45)
[2018-08-29] MEDS ORDERED: INSULIN REGULAR (HUMULIN R) UD 100 UNITS/ML SYR SUBCUT ONE (18:45)
[2018-08-29 19:05] LABS: CLARITY URINE CLEAR (CLEAR); COLOR URINE YELLOW (YELLOW); KETONES URINE 4+ (NEGATIVE); LEUKOCYTE ESTERASE URINE NEGATIVE (NEGATIVE); NITRITE URINE NEGATIVE (NEGATIVE); OCCULT BLOOD URINE 3+ (NEGATIVE); PROTEIN URINE NEGATIVE (NEGATIVE); SPECIFIC GRAVITY URINE 1.024 (1.005-1.030); UROBILINOGEN URINE 0.2 E.U./dL (0.2-1.0)
[2018-08-29 19:15] LABS: BG BASE EXCESS -14.3 mmol/L (-2.0-2.0); BG CARBOXYHEMOGLOBIN 0.3 % (0.5-1.5); BG DEOXYHEMOGLOBIN 2.6 % (0.0-5.0); BG FRACTION INSPIRED OXYGEN 21; BG METHEMOGLOBIN 0.5 % (0.0-1.5); BG OXYGEN SATURATION 97.4 % (92.0-98.5); BG OXYHEMOGLOBIN 96.6 % (94.0-97.0); BG PCO2 20.4 mmHg (35.0-45.0); BG PO2 107.9 mmHg (75.0-100.0); BG SAMPLE SITE RIGHT RADIAL; BG TOTAL HEMOGLOBIN 11.1 g/dL (12.0-18.0); BG VENT MODE ROOM AIR
[2018-08-29 19:36] LABS: HEMATOCRIT. 32.6 % (36.0-48.0); HEMOGLOBIN. 10.3 g/dL (12.0-16.0); MEAN CORPUSCULAR HEMOGLOBIN 29.1 pg (28.0-32.0); MEAN CORPUSCULAR VOLUME 91.9 fL (81.0-99.0); MEAN PLATELET VOLUME 7.7 fl (7.4-10.4); PLATELET 554 x1000/uL (130-400); RED BLOOD CELL COUNT 3.55 mill/uL (4.2-5.4); RED CELL DISTRIBUTION WIDTH 19.3 % (11.6-14.6)
[2018-08-29 19:37] LABS: CHLORIDE 100 mEq/L (98-107)
[2018-08-29 19:40] LABS: HCG SCREEN NEGATIVE; PARTIAL THROMBOPLASTIN TIME 20.8 sec (23.4-31.0); PROTHROMBIN TIME 10.1 sec (9.1-11.1)
[2018-08-29] MEDS ORDERED: INSULIN REGULAR (HUMULIN R) 300UNITS/3ML IV STA (19:42)
[2018-08-29 19:44] LABS: BETA HYDROXYBUTYRATE 8.9 mMol/L (0.0-0.3)
[2018-08-29] MEDS ORDERED: INSULIN REGULAR (DRIP) 100 UNITS in SODIUM CHLORIDE 0.9% 100 ML IV ONE (20:25)
[2018-08-29 20:27] LABS: PLATELET ESTIMATE MARKEDLY INCREASED
[2018-08-29 21:16] LABS: CHLORIDE 106 mEq/L (98-107)
[2018-08-29 21:21] LABS: PHOSPHORUS 3.3 mg/dL (2.5-4.9)
[2018-08-29] MEDS: DEXT 5%/0.45% NACL KCL 20MEQ/L 1,000 ML IV SCH (23:07)
[2018-08-30 00:24] LABS: CHLORIDE 112 mEq/L (98-107)
[2018-08-30 00:30] LABS: PHOSPHORUS 1.7 mg/dL (2.5-4.9)
[2018-08-30] MEDS ORDERED: INSULIN GLARGINE UD 100 UNITS/ML SYR SUBCUT NR (02:30)
[2018-08-30 02:40] LABS: CHLORIDE 113 mEq/L (98-107)
[2018-08-30 02:47] LABS: PHOSPHORUS 2.1 mg/dL (2.5-4.9)
[2018-08-30] MEDS: DEXT 5%/0.45% NACL KCL 20MEQ/L 1,000 ML IV SCH (05:40)
[2018-08-30] MEDS ORDERED: INSULIN LISPRO 100 UNITS/ML SUBCUT SCH (07:15)
[2018-08-30 08:30] VITALS: BP 126/67
[2018-08-30 08:50] VITALS: BP 126/67
[2018-08-30] MEDS ORDERED: DEXTROSE 50% WATER 50ML SYRINGE IV PRN (09:30)
[2018-08-30] MEDS ORDERED: MAGNESIUM OXIDE 400MG TABLET PO SCH (09:30)
[2018-08-30] MEDS ORDERED: SODIUM CHLORIDE 0.45% 1,000 ML IV SCH (09:30)
[2018-08-30] MEDS ORDERED: ONDANSETRON HCL 4MG/2ML INJ IV PRN (09:30)
[2018-08-30] MEDS ORDERED: POTASSIUM-SODIUM PHOSPHATE POWDER PACKET PO SCH (09:30)
[2018-08-30] MEDS: BLOOD SUGAR DIAGNOSTIC STRIP TEST SCH ×3 (09:54→18:10)
[2018-08-30] MEDS ORDERED: MORPHINE SULFATE 4 MG/ML CPJ (NOT FOR IM USE) IV PRN (10:00)
[2018-08-30] MEDS ORDERED: INSULIN GLARGINE UD 100 UNITS/ML SYR SUBCUT SCH ×3 (11:00→22:00)
[2018-08-30 11:54] VITALS: BP 113/59
[2018-08-30] MEDS ORDERED: BLOOD SUGAR DIAGNOSTIC STRIP TEST SCH (12:20)
[2018-08-30] MEDS: INSULIN LISPRO 100 UNITS/ML SUBCUT SCH ×2 (12:50→17:50)
[2018-08-30 16:00] VITALS: BP 109/63
[2018-08-30 20:53] VITALS: BP 107/60
== END 2018-08-30 19:17 | disposition home or self-care (01) | DRG 282 ==
LOC: ER 17:47 → EDBEDREQSVC 08-30 02:07 → EDBEDREQTM 08-30 02:07 → ENRESERV 08-30 07:35 → 6EST 08-30 08:25
PROVIDERS: ADMIT Internal Medicine; ATTEND Internal Medicine
DX: K85.90 Acute pancreatitis without necrosis or infection, unspecified (principal); E11.10 Type 2 diabetes mellitus with ketoacidosis without coma; D64.9 Anemia, unspecified; E87.1 Hypo-osmolality and hyponatremia; Z79.4 Long term (current) use of insulin; Z98.891 History of uterine scar from previous surgery; Z79.899 Other long term (current) drug therapy
CPT/HCPCS: 36415; 36600; 71045; 74176; 76700; 80048; 82010; 82375; 82805; 82962; 83036; 83735; 83880; 84100; 84484; 84703; 93005; 93970; 96365; 96366; 96372; 96375; 99291; J1815; J2270; J2405; J7030; J7050

== ENCOUNTER 2018-09-30 21:37 | Inpatient (IN) | payer OTHER ==
[~2018-09-30] VITALS: Ht 154.9 cm; Wt 38.1 kg
[2018-09-30] MEDS ORDERED: SODIUM CHLORIDE 0.9% 1000ML BAG (SEPSIS BOLUS) IV ONE (22:00)
[2018-09-30] MEDS ORDERED: DEXT 10% WATER 1,000 ML IV SCH (22:15)
[2018-09-30 23:05] LABS: CHLORIDE 102 mEq/L (98-107)
[2018-09-30 23:07] LABS: EOSINOPHILS % 0.4 % (0.0-5.0); HEMATOCRIT. 30.6 % (36.0-48.0); LYMPHOCYTES % 12.5 % (20.0-50.0); MEAN CORPUSCULAR HEMOGLOBIN 27.7 pg (28.0-32.0); MEAN PLATELET VOLUME 7.6 fl (7.4-10.4); MONOCYTES % 5.8 % (2.0-8.0); NEUTROPHILS % 80.3 % (40.0-76.0); PLATELET 401 x1000/uL (130-400); PROTHROMBIN TIME 9.8 sec (9.6-11.0)
[2018-09-30 23:11] LABS: HCG SCREEN NEGATIVE
[2018-09-30] MEDS ORDERED: CEFTRIAXONE 1 G PREMIX 50 ML IV ONE (23:15)
[2018-10-01] VITALS (11 sets, daily range): BP systolic 99–136; BP diastolic 42–88
[2018-10-01 00:03] LABS: CLARITY URINE CLOUDY (CLEAR); COLOR URINE YELLOW (YELLOW); KETONES URINE NEGATIVE (NEGATIVE); LEUKOCYTE ESTERASE URINE NEGATIVE (NEGATIVE); NITRITE URINE NEGATIVE (NEGATIVE); OCCULT BLOOD URINE NEGATIVE (NEGATIVE); PROTEIN URINE NEGATIVE (NEGATIVE); SPECIFIC GRAVITY URINE 1.015 (1.005-1.030); UROBILINOGEN URINE 0.2 E.U./dL (0.2-1.0)
[2018-10-01] MEDS ORDERED: DEXTROSE 50% WATER 50ML SYRINGE IV PRN (01:30)
[2018-10-01] MEDS ORDERED: ONDANSETRON HCL 4MG/2ML INJ IV PRN (01:45)
[2018-10-01] MEDS ORDERED: ACETAMINOPHEN 325MG TABLET PO PRN (01:45)
[2018-10-01] MEDS: PIPERACILLIN/TAZ 3.375G PREMIX 50 ML IV SCH ×3 (02:54→13:24)
[2018-10-01] MEDS ORDERED: PIPERACILLIN/TAZOBACTAM 3.375GM/50ML PREMIX IV SCH (06:00)
[2018-10-01 06:35] LABS: CHLORIDE 105 mEq/L (98-107)
[2018-10-01 06:42] LABS: LDL CHOLESTEROL 106 mg/dL (5-100)
[2018-10-01 06:43] LABS: HDL CHOLESTEROL 93 mg/dL (40-59)
[2018-10-01 06:45] LABS: BASOPHILS % 0.5 % (0.0-2.0); EOSINOPHILS % 0.6 % (0.0-5.0); HEMATOCRIT. 28.4 % (36.0-48.0); HEMOGLOBIN. 9.2 g/dL (12.0-16.0); LYMPHOCYTES % 16.6 % (20.0-50.0); MEAN CORPUSCULAR HEMOGLOBIN 27.6 pg (28.0-32.0); MEAN PLATELET VOLUME 8.1 fl (7.4-10.4); MONOCYTES % 7.5 % (2.0-8.0); NEUTROPHILS % 74.8 % (40.0-76.0); PLATELET 346 x1000/uL (130-400); RED BLOOD CELL COUNT 3.34 mill/uL (4.2-5.4); RED CELL DISTRIBUTION WIDTH 18.7 % (11.6-14.6)
[2018-10-01] MEDS: BLOOD SUGAR DIAGNOSTIC STRIP TEST SCH ×3 (08:18→17:50)
[2018-10-01] MEDS: INSULIN LISPRO 100 UNITS/ML SUBCUT SCH ×3 (08:34→18:35)
[2018-10-01] MEDS ORDERED: ENOXAPARIN 40MG/0.4ML SYR SUBCUT SCH (09:00)
[2018-10-01] MEDS ORDERED: INSULIN GLARGINE UD 100 UNITS/ML SYR SUBCUT SCH (12:00)
[2018-10-01] MEDS ORDERED: ATORVASTATIN CALCIUM 40MG TABLET PO SCH (21:00)
[2018-10-02] MEDS ORDERED: ENOXAPARIN 30MG/0.3ML SYR SUBCUT SCH (09:00)
[2018-10-20] MEDS ORDERED: INSLIS SUBCUT (15:32)
== END 2018-10-01 19:10 | disposition home or self-care (01) | DRG 720 ==
LOC: ER 21:37 → EDBEDREQTM 23:18 → EDBEDREQ 23:18 → ENRESERV 23:35 → 5EST 10-01 00:34
PROVIDERS: ADMIT Internal Medicine; ATTEND Internal Medicine
DX: A41.9 Sepsis, unspecified organism (principal); G93.41 Metabolic encephalopathy; K85.90 Acute pancreatitis without necrosis or infection, unspecified; E11.649 Type 2 diabetes mellitus with hypoglycemia without coma; D64.9 Anemia, unspecified; D72.819 Decreased white blood cell count, unspecified; E78.5 Hyperlipidemia, unspecified; Z98.891 History of uterine scar from previous surgery; Z79.4 Long term (current) use of insulin
CPT/HCPCS: 36415; 71045; 80048; 80061; 82962; 83036; 83605; 83735; 83880; 84145; 84484; 84703; 93005; 99291; J0696; J1650; J1815; J2543; J7030; J7050

== ENCOUNTER 2019-08-08 22:18 | Emergency (ER) | payer MEDICAID, OTHER ==
[~2019-08-08] VITALS: Ht 160 cm; Wt 53.0 kg
[~2019-08-08 22:18] MED LIST changes: -HUMALOG SQ; +INSLIS SUBCUT
[2019-08-08] MEDS ORDERED: DEXTROSE 50% WATER 50ML SYRINGE IV ONE ×2 (22:28→22:30)
[2019-08-08 23:44] LABS: CHLORIDE 105 mEq/L (98-107)
[2019-08-08 23:46] LABS: HEMATOCRIT 26.9 % (36.0-48.0); HEMOGLOBIN 8.5 g/dL (12.0-16.0); MEAN CORPUSCULAR HEMOGLOBIN 22.3 pg (28.0-32.0); PLATELET 285 x1000/uL (130-400); RED BLOOD CELL COUNT 3.79 mill/uL (4.2-5.4); RED CELL DISTRIBUTION WIDTH 19.2 % (11.6-14.6)
[2019-08-08 23:47] LABS: ETHANOL BLOOD 23 mg/dL
[2019-08-09 00:23] LABS: *AMPHETAMINES SCREEN URINE NEGATIVE (NEGATIVE); *BARBITURATES SCREEN URINE NEGATIVE (NEGATIVE); *BENZODIAZEPINES SCREEN URINE NEGATIVE (NEGATIVE); *COCAINE SCREEN URINE NEGATIVE (NEGATIVE); CANNABINOID URINE SCREEN NEGATIVE (NEGATIVE); METHADONE URINE SCREEN NEGATIVE (NEGATIVE); OPIATES URINE SCREEN NEGATIVE (NEGATIVE); PHENCYCLIDINE URINE SCREEN NEGATIVE (NEGATIVE)
[2019-08-09 00:54] VITALS: BP 106/55
== END 2019-08-09 00:57 | disposition home or self-care (01) ==
LOC: ER 22:18
DX: E11.649 Type 2 diabetes mellitus with hypoglycemia without coma (principal); F10.129 Alcohol abuse with intoxication, unspecified; Y90.1 Blood alcohol level of 20-39 mg/100 ml; Z79.4 Long term (current) use of insulin
CPT/HCPCS: 36415; 80053; 80305; 80320; 82962; 85027; 96374; 99283; G0480